=== PATIENT | male | born 1985 ===

== ENCOUNTER → 2017-02-28 | Outpatient (REF) ==
--- NOTE | 2017-02-28 15:31 | REP ---
Lumbar spine series: Three views. History: Degenerative disc disease. No comparison imaging. Findings: There is straightening of the normal lumbar lordosis and there is minimal kyphosis at the thoracolumbar junction. Early discogenic spurring is seen at T12-L1 with slight disc space narrowing at this level. Disc spaces are otherwise maintained. Pedicles and posterior elements are intact. Psoas margins are symmetric. Sacrum and SI joints are unremarkable. There is no evidence of spondylolysis or spondylolisthesis. Impression: Early degenerative disc disease at T12-L1. Straightening. Otherwise negative. Signed by Leo Hernández MD 02/28/2017 04:03 P
== END ==
LOC: M SMT 11:55
PROVIDERS: ATTEND Internal Medicine
DX: Z02.71 Encounter for disability determination (principal)